=== PATIENT | female | born 1945 | race Caucasian/White ===

== ENCOUNTER → 2018-11-21 | Outpatient (CLI) | payer MEDICARE ==
--- NOTE | 2018-11-22 16:27 | MAM ---
EXAM DESCRIPTION: 3D Screening BILATERAL : Digital Mammography. CLINICAL HISTORY: 73 years Female ANNUAL SCREENING . No complaints. No personal or family history of breast cancer. Childbirth. Postmenopausal 43 years. Taken HRT more than 5 years ago. Prior benign right breast biopsy. Lifetime risk of developing breast cancer (Tyrer-Cuzick model)(%): 4.9. COMPARISON: Baseline study at this facility. No prior reports available. TECHNIQUE: Bilateral CC and MLO projection full-field images, digital tomosynthesis mammographic technique Bilateral digital 2-D full-field MLO images. CAD not available for tomosynthesis or 2-D images. FINDINGS: The breast parenchymal density pattern is: Heterogeneously dense breast tissue, which may obscure small masses. No skin thickening or nipple retraction. In the middle third of the right breast at the 11:30-12:00 position, is a apparent biopsy site marker. It is adjacent to an area of architectural distortion and multiple heterogeneous microcalcifications. Calcifications appear more inferior on the MLO views. Bilateral axillary nodes. Multiple on the inferior right breast indicated by skin marker. No new focal, stellate mass or density, focal asymmetry , and no suspicious microcalcifications left breast. IMPRESSION: BI-RADS CATEGORY: 0 - INCOMPLETE- Need prior mammograms for comparison. FOLLOW-UP: Comparison with prior examination(s) when available. Written communication explaining the results and follow-up will be mailed to the patient and referring care provider. Electronically signed by: Preston Campos MD 11/22/2018 4:24 PM FITTER TACKER
== END ==
LOC: MAMMO 11:27
PROVIDERS: ATTEND General Practice
DX: Z12.31 Encounter for screening mammogram for malignant neoplasm of breast (principal)

== ENCOUNTER → 2018-12-11 | Outpatient (CLI) | payer MEDICARE ==
--- NOTE | 2018-12-12 11:41 | US ---
EXAM DESCRIPTION: Breast,Right: Ultrasound CLINICAL HISTORY: 73 yearsFemaleABNORMAL MAMMOGRAM COMPARISON: Diagnostic right breast digital tomosynthesis on the same visit. Bilateral screening digital breast tomosynthesis 11/21/2018 TECHNIQUE: Transcutaneous scanning of the right breast utilizing segundo-scale and Doppler modes. Scanning performed by the candy roller and Dr. Campos. FINDINGS: Scanning of the inferior right breast anterior third. Mostly fatty echotexture with heterogeneous fibroglandular regions. Specifically scanning 5:00-7:00 nipple, to 3 cm posterior nipple. No distinct cyst or dominant solid mass. No parenchymal edema or large calcifications. No overlying skin changes. Normal vascularity.. IMPRESSION: 1. Bi-Rads Category 2: Benign. 2. Please refer to diagnostic right breast digital tomosynthesis examination and report on this visit. The FINDINGS and the FOLLOW-UP plan were reviewed in person with the patient after the examination. Written communication explaining the IMPRESSION and FOLLOW-UP will be mailed to the patient and referring care provider. Electronically signed by: Preston Campos MD 12/12/2018 11:37 AM [facility]
--- NOTE | 2018-12-12 21:00 | MAM ---
EXAM DESCRIPTION: 3D Diagnostic, Right: Digital Mammography CLINICAL HISTORY: 73 yearsFemaleABNORMAL MAMMOGRAM . Focal asymmetry middle third of the right breast. Site of 3 prior biopsies.. COMPARISON: Targeted right breast ultrasound included with this examination.. Bilateral screening digital breast tomosynthesis 11/21/2018.. TECHNIQUE: Right breast LM projection full-field images, digital mammographic tomosynthesis technique. CAD not available. FINDINGS: Right breast parenchymal density pattern is: Heterogeneously dense breast tissue, which may obscure small masses. No skin thickening or nipple retraction biopsy site marker again seen. No focal asymmetry abutting the biopsy site marker, but more anterior and inferior 5:00-7:00 position of the breast. Minimal architectural distortion. No new focal, stellate mass or density, , and no suspicious microcalcifications right breast ULTRASOUND: Scanning of the inferior right breast anterior third. Mostly fatty echotexture with heterogeneous fibroglandular regions. Specifically scanning 5:00-7:00 nipple, to 3 cm posterior nipple. No distinct cyst or dominant solid mass. No parenchymal edema or large calcifications. No overlying skin changes. Normal vascularity.. IMPRESSION: Benign exam. BIRAD CATEGORY: 2 BENIGN FINDINGS. RECOMMENDATIONS: FOLLOW UP: Return to routine digital bilateral mammographic screening, one year interval from November 2018. The FINDINGS and the FOLLOW-UP plan were reviewed in person with the patient after the examination. Written communication explaining the IMPRESSION and FOLLOW-UP will be mailed to the patient and referring care provider. According to the [employer], yearly mammograms are recommended starting at age 40 and continuing as long as a woman is in good health. Any breast change noted on a breast self-exam should be reported promptly to the patient's healthcare provider. Breast MRI is recommended for women with an approximately 20-25% or greater lifetime risk of breast cancer, including women with a strong family history of breast or ovarian cancer and women who have been treated for Hodgkin's disease. A negative mammographic report should not delay tissue diagnosis in patients with significant clinical history or physical findings. Extremely dense breast tissue limits the sensitivity of digital mammography. Electronically signed by: Preston Campos MD 12/12/2018 8:57 PM RETOUCHING OPERATOR
== END ==
LOC: MAMMO 10:30
PROVIDERS: ATTEND General Practice
DX: R92.2 Inconclusive mammogram (principal)
CPT/HCPCS: 76641; 77065; G0279

== ENCOUNTER → 2020-08-16 | Outpatient (CLI) | payer MEDICARE ==
--- NOTE | 2020-08-16 11:40 | RAD ---
EXAM DESCRIPTION: Chest,1 View CLINICAL HISTORY: RIB PAIN FINDINGS/ IMPRESSION: Normal heart size. Tortuous aorta. Cardiac pacemaker No pulmonary edema, infiltrate or effusion No pneumothorax. No acute bony abnormality Electronically signed by: Hector Jordan MD 08/16/2020 11:39 AM FRONT END ENGINEER
--- NOTE | 2020-08-16 11:41 | RAD ---
EXAM DESCRIPTION: Ribs,Left 2 Views CLINICAL HISTORY: RIB PAIN FINDINGS/ IMPRESSION: No left-sided rib fracture. No lytic or blastic bony lesion No pneumothorax. No pleural effusion Electronically signed by: Hector Jordan MD 08/16/2020 11:39 AM [facility]
--- NOTE | 2020-08-16 11:52 | CT ---
EXAM DESCRIPTION: Head CLINICAL HISTORY: HEAD INJURY, HEADACHE COMPARISON: None available TECHNIQUE: Multiple axial images of the head without contrast. Multiplanar reformatted images. This exam was performed according to our departmental dose-optimization program, which includes automated exposure control, adjustment of the mA and/or kV according to patient size and/or use of iterative reconstruction technique. FINDINGS: There is no CT evidence of acute intracranial hemorrhage, midline shift, or large territory infarction. Moderate generalized volume loss. Moderate patchy supratentorial white matter hypodensities. 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 No acute extra-axial hemorrhage. 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 Minimal associated mass effect on the frontal lobes. Calcific plaque in the visualized arteries. There is no acute calvarial defect. The visualized paranasal sinuses and the mastoids are clear. IMPRESSION: 1. No CT evidence of an acute intracranial abnormality. If there is concern for an acute or subacute infarct, consider follow-up MRI. 2. Senescent changes. 3. Increased CSF density fluid over both frontal convexities. The findings are likely secondary to chronic subdural hematomas or subdural hygromas. Secondary expansion of the subdural spaces due to frontal dominant atrophy is an additional consideration. Electronically signed by: Luke Betancourt MD 08/16/2020 11:50 AM FARM LABOR CONTRACTOR
--- NOTE | 2020-08-16 11:53 | CT ---
EXAM DESCRIPTION: Maxillofacial CT without contrast CLINICAL HISTORY: 74 years Female, FACIAL PAIN COMPARISON: None. TECHNIQUE: 2.[address] scanning through the facial bones was performed without contrast. Coronal and sagittal images are reformatted. FINDINGS: Axial images show intact appearance of the mandible. Zygomatic arches appear intact. Intact anterior and posterior maxillary sinus pozo. Paranasal sinuses appear clear. Globes appear intact. Marked facet degenerative changes on the right. Large mucous retention cyst in the right maxillary sinus. Nodular mucosal thickening of the left maxillary sinus with small amount of dependent fluid within the right maxillary sinus. Other paranasal sinuses appear clear. Normal aeration of tympanic cavities and mastoid air cells. Coronal reformatted images are negative for evidence of medial or inferior orbital blowout fracture. A large right maxillary sinus mucous retention cyst measures 2.5 cm. Advanced degenerative changes at the temporomandibular joints. Marked facet degenerative changes in the upper C-spine. Sagittal reformatted images show normal alignment of the upper C-spine. Normal aeration of the sphenoid sinus. Sella appears normal. Intact nasal skeleton. Mandible appears intact. IMPRESSION: Negative for fracture of the facial bones. This exam was performed according to our departmental dose-optimization program, which includes automated exposure control, adjustment of the mA and/or kV according to patient size and/or use of iterative reconstruction technique. Electronically signed by: Erik Guerrero MD 08/16/2020 11:51 AM MOLD CLEANING AND STORAGE SUPERVISOR
--- NOTE | 2020-08-16 11:58 | CT ---
EXAM DESCRIPTION: Cervical Spine CLINICAL HISTORY: NECK PAIN COMPARISON: None Available. TECHNIQUE: Cervical CT is performed with thin-section axial imaging. MPRs are created and reviewed as well. FINDINGS: Axial bone window images reveal intact ring of C1. No abnormal widening of the atlantodens interval. No fracture of the vertebral bodies or transverse processes or posterior elements. Lung apices appear clear. No cervical mass or adenopathy. Sagittal reformatted images show normal alignment of facets. No jumped facet or facet fracture. Normal craniocervical alignment. No prevertebral soft tissue swelling. No a avulsion of the spinous processes. Spondylosis: Multilevel degenerative disc disease at the C5-6 and C6-7 levels. Slight degenerative anterolisthesis of C3 on C4 and C4 on C5. Mild reversal of the normal cervical lordosis. Prominent facet degenerative changes on the right at C3-4 through C5-6 levels. Prominent facet degenerative spurring on the left at C7-T1. Prominent posterior annular bulges at C5-6 and C6-7 with mild to moderate spinal canal compromise. Coronal reformatted images show normal atlantooccipital and atlantoaxial alignment. The base of the dens is intact as is the body of C2. Intact lateral masses. IMPRESSION: Negative for fracture or posttraumatic subluxation. Degenerative changes as described. This exam was performed according to our departmental dose-optimization program, which includes automated exposure control, adjustment of the mA and/or kV according to patient size and/or use of iterative reconstruction technique. Total DLP equals 1430.11 mGycm. Electronically signed by: Erik Guerrero MD 08/16/2020 11:56 AM [facility]
== END ==
LOC: CT 11:03
PROVIDERS: ATTEND General Practice
DX: M47.892 Other spondylosis, cervical region (principal); Q25.46 Tortuous aortic arch; R07.81 Pleurodynia; Z95.0 Presence of cardiac pacemaker; M50.322 Other cervical disc degeneration at C5-C6 level; M50.323 Other cervical disc degeneration at C6-C7 level; M43.12 Spondylolisthesis, cervical region; M25.78 Osteophyte, vertebrae; G31.1 Senile degeneration of brain, not elsewhere classified; G93.9 Disorder of brain, unspecified; W01.0XXA Fall on same level from slipping, tripping and stumbling without subsequent striking against object, initial encounter